=== PATIENT | female | born 1980 | race Caucasian/White ===

== ENCOUNTER 2022-07-22 15:33 | Emergency (ER) | payer BC, SELFPAY ==
[2022-07-22 15:56] VITALS: BP 132/76; PULSE 79; RESP 20; TEMP 36.1; O2SAT 100; BMI 28.0
--- NOTE | 2022-07-22 16:05 | ED.LOWEXIN ---
HPI - Extremity Injury (Lower) General Time Seen by Provider: 16:05 Date Seen: 07/22/22 Chief Complaint: Extremity Pain/Injury, Lower Stated Complaint: R leg injury Time Seen by Provider: 07/22/22 16:02 Source: patient and RN notes reviewed Limitations: no limitations History of Present Illness HPI Narrative: 42-year-old female is coming in with acute right knee pain. She was walking her young lab dog when he ran into her knee. She is having pain on the outside of the right knee, radiates up the leg and goes down. If she attempts to move her leg, the pain increases. She states the top of her foot feels a little numb and tingly. She has difficulty bearing weight. She states it is swollen on the outside of the knee. This happened just prior to arrival. MD complaint: knee injury Onset (ago): minute(s) Injury: Right: knee Type of Injury: blunt Severity: moderate Related Data Home Medications Medication Instructions Recorded Confirmed methylphenidate HCl 20 mg tablet 20 mg PO DAILY 07/22/22 07/22/22 methylphenidate HCl 54 mg 54 mg PO QAM 07/22/22 07/22/22 tablet,extended release 24 hr venlafaxine 150 mg 150 mg PO DAILY 07/22/22 07/22/22 capsule,extended release 24 hr venlafaxine 75 mg capsule,extended 75 mg PO DAILY 07/22/22 07/22/22 release 24 hr Allergies Allergy/AdvReac Type Severity Reaction Status Date / Time latex Allergy throat Verified 07/22/22 16:02 itchy prochlorperazine Allergy Hives Verified 07/22/22 16:02 [From Compazine] shellfish derived Allergy Verified 07/22/22 16:02 Review of Systems Narrative: As per HPI PFSH PFSH Social History Smoking Status: Never smoker Do you use any of these nicotine containing products: None How often do you have a drink containing alcohol: never AUDIT-C Alcohol total score: 0 Non-prescribed substance use: denies use Exam Const: Vital Signs, click to edit/add: Vital Signs - 24 hr 07/22/22 15:56 Temperature 97.0 F L Pulse Rate [Pulse Oximeter] 79 Respiratory Rate 20 Blood Pressure [Le ft Forearm] 132/76 Pulse Oximetry 100 Oxygen Delivery Me thod Room Air Documenting provider has reviewed patient's vital signs: yes Other: pleasant 42-year-old female with her right knee flexed, resting the back of the ankle on her left knee. Can see obvious swelling along the anterolateral proximal tibial/lower extremity. Joint line does not palpate tender nor swollen. She does seem to have some popliteal fossa discomfort but I feel no fluctuance, no significant swelling. She is tender over the insertion of the lateral collateral ligament on the tibial area but not really over the joint line itself. When I stress the lateral collateral ligament she does complain of pain. I cannot get a good Matt's due to her pain. Patella seems to be riding intact without any tenderness. No medial joint line tenderness. There is no open wound of the skin. She has good dorsalis pedis pulse posterior tibialis pulse on the right. Foot is warm. Does seem to have sensation. Course Course Hospital Course: there is obvious swelling along the lateral upper lower extremity. Patient has discomfort that is severe with any attempts at movement of the foot and this pain isolate up to the upper outer leg. I wonder about muscular injury where there is attachment on the outer lateral tibia. She also has pain with stressing of the lateral collateral ligament. I cannot get a good Matt's on her due to her pain. We are going to give her some IV Toradol, start with some plain films to see if there is any avulsion type fracture. Have reviewed with her that she is likely going to need to see Orthopedics and possibly advanced imaging such as an MRI. Reevaluation(s) Reevaluation #1: Reviewed with patient that her knee xray on preliminary review is showing abnormality in the proximal tibia, will be getting further imaging of the complete tibia/fibula. Time: 17:16 Reevaluation #2: Reviewed the CT report, will need orthopedic follow up for sure. Reviewed with her pain management, she declines oxycodone. Time: 20:38 Consultations Consultation #1: Spoke with Erlinda Carrero of the [facility] covering for Orthopedics. Reviewed the history with her, we are still awaiting x-rays. Likely to place a knee immobilizer, follow up with Ortho. She will have the office call the patient tomorrow morning to get a follow-up scheduled appointment. Did call Erlinda back after seeing the x-rays. Once the tibia and fibula x-ray were reviewed, did call her. Reviewed the case at 6:21 p.m.. She agrees that she thinks this is probably a tibial plateau fracture with extension into the tibia. We will obtain CT of her knee here, put her in a knee immobilizer after. Did review this with the patient right after talking to Erlinda. Time: 16:23 Vital Signs Vital signs: Initial Vital Signs Temperature 97.0 F L 07/22/22 15:56 Temperature Source Temporal Artery Scan 07/22/22 15:56 Pulse Rate 79 07/22/22 15:56 Respiratory Rate 20 07/22/22 15:56 Blood Pressure 132/76 07/22/22 15:56 Blood Pressure Mean 94 07/22/22 15:56 Blood Pressure Position Supine 07/22/22 15:56 Pulse Oximetry 100 07/22/22 15:56 Oxygen Delivery Method Room Air 07/22/22 15:56 Vital Signs Temperature 97.0 F L 07/22/22 15:56 Pulse Rate 79 07/22/22 15:56 Respiratory Rate 20 07/22/22 15:56 Blood Pressure 132/76 07/22/22 15:56 Pulse Oximetry 100 07/22/22 15:56 Oxygen Delivery Method Room Air 07/22/22 15:56 Temperature 97.0 F L 07/22/22 15:56 Pulse Rate 79 07/22/22 15:56 Respiratory Rate 20 07/22/22 15:56 Blood Pressure 132/76 07/22/22 15:56 Pulse Oximetry 100 07/22/22 15:56 Oxygen Delivery Method Room Air 07/22/22 15:56 MDM - Extremity Injury (Lower) Imaging Data X-ray right knee: Attestation: I have reviewed the pertinent imaging results. My impression: On the lateral view of the tibia, I see a fracture line. Will await Radiology over read but I will also order a full tibia and fibula of this extremity. Radiologist's impression: Patient: HARRIS PAK Facility:?[facility] Patient ID:?[id number] Site Patient ID:?[id number]. Site :?[id number] Study:?XRay Knee Right -07/22/2022 5:12:16 PM Ordering Physician:?Moe Maradiaga Final Report: INDICATION: Injury/pain. TECHNIQUE: Right knee 3 views. COMPARISON: None. FINDINGS: There is an acute nondisplaced longitudinally oriented fracture of the proximal tibial metadiaphysis. The fracture line extends to the articular surface of the medial tibial plateau. No dislocation. No knee joint effusion. The patella is normally aligned. Soft tissues are unremarkable. IMPRESSION: Acute nondisplaced intra-articular fracture of the proximal tibia. Dictated by Claudia Pedersen MD @ 07/22/2022 6:44:28 PM (Electronic Signature) X-ray right tibia and fibula: Attestation: I have reviewed the pertinent imaging results. My impression: Can see the proximal tibial fracture, await radiology over-read. Radiologist's impression: Patient: HARRIS PAK Facility:?[facility] Patient ID:?[id number] Site Patient ID:?[id number]. Site :?[id number] Study:?XRay Extremity Right TIB./FIB-07/22/2022 5:48:48 PM Ordering Physician:?Moe Maradiaga Final Report: INDICATION: Abnormal knee x-ray. TECHNIQUE: Right tibia and fibula, 3 views. COMPARISON: None. FINDINGS: There is an acute nondisplaced longitudinally oriented fracture of the proximal tibial metadiaphysis. Intra-articular extension to the knee joint is better seen on same day knee radiographs. The knee and ankle appear normally aligned. Small Achilles calcaneal spur. Mild soft tissue swelling along the anterior aspect of the proximal tibia. IMPRESSION: Acute nondisplaced fracture of the proximal tibia. Dictated by Claudia Pedersen MD @ 07/22/2022 6:47:37 PM (Electronic Signature) CT of right knee: Attestation: I have reviewed the pertinent imaging results. Radiologist's impression: Patient: HARRIS PAK Facility:?[facility] Patient ID:?[id number] Site Patient ID:?[id number]. Site :?1980 Study:?CT Knee Right w/o Contrast-07/22/2022 7:36:35 PM Ordering Physician:?Moe Maradiaga Final Report: INDICATION: Knee pain. TECHNIQUE: Noncontrast axial images with sagittal and coronal reconstructions. COMPARISON: Radiographs from today. FINDINGS: Large lipohemarthrosis. There is a comminuted intra-articular fracture of the proximal tibia with involvement of both the medial and lateral tibial plateaus. The lateral tibial plateau fracture is severely comminuted, with depression of the central portion of the articular surface. The degree of articular surface fracture fragment depression measures up to 1.5 cm. The involved articular component measures approximately 2.3 x 1.8 cm on axial image 165. There also vertically oriented fractures involving the lateral tibial plateau, including the anterior as well as the anterolateral aspect of the proximal tibia (lateral the fractures are seen both anteriorly and posteriorly). These components are essentially nondisplaced. The intra-articular involvement of the medial tibial plateau is essentially nondisplaced. There is also fracture involvement of the tibial spines, which are nondisplaced. The distal femur, patella, and proximal tibia are intact. IMPRESSION: 1. Large lipohemarthrosis. 2. Comminuted intra-articular fracture of the proximal tibia with involvement of both the medial and lateral tibial plateaus, as well as the tibial spines. The lateral tibial plateau fracture demonstrates significant depression of the articular surface, while the medial tibial plateau fracture is nondisplaced. See above. Please note that all CT scans at this facility use dose modulation, iterative reconstruction, and/or weight-based dosing when appropriate to reduce radiation dose to as low as reasonably achievable. Dictated by Yassine Frost MD @ 07/22/2022 8:10:55 PM (Electronic Signature) Discharge Plan Discharge Clinical Impression: Closed fracture of tibial plateau Qualifiers: Encounter type: initial encounter Laterality: right Qualified Code(s): S82.141A - Displaced bicondylar fracture of right tibia, initial encounter for closed fracture Patient Disposition: Home, Self-Care Condition: Unchanged Instructions: Leg Fracture (ED) Additional Instructions: Ice, elevate this knee as much as able to to help diminish pain and swelling. Use the knee immobilizer and crutches for nonweightbearing. You do need to sleep in the knee immobilizer. Tylenol 1000 mg 3 times a day baseline for pain. Can supplement with ibuprofen per bottle directions as needed for further pain management. Can use oxycodone 5 mg per prescription for severe pain. Oxycodone is a narcotic and can be constipating. May need to use MiraLax and or senna while on this to prevent narcotic associated constipation. You absolutely need to follow-up with the orthopedist. They are supposed to contact you in the morning. If you have not heard from them by lunch, please call the number to get scheduled for a follow-up, . Prescriptions: No Action venlafaxine 75 mg capsule,extended release 24hr 75 mg PO DAILY methylphenidate HCl 20 mg tablet 20 mg PO DAILY venlafaxine 150 mg capsule,extended release 24hr 150 mg PO DAILY methylphenidate HCl 54 mg tablet extended release 24hr 54 mg PO QAM Follow Up/Referrals: Emily Nunez MD [Staff Physician] - Stand Alone Forms: [employer] Info Instructions
--- NOTE | 2022-07-22 16:11 | CRLHL7_ITS ---
For Patients: As a result of the Cures Act, medical imaging exams and procedure reports are released immediately into your electronic medical record. You may view this report before your referring provider. If you have questions, please contact your health care provider. INDICATION: Injury/pain. TECHNIQUE: Right knee 3 views. COMPARISON: None. FINDINGS: There is an acute nondisplaced longitudinally oriented fracture of the proximal tibial metadiaphysis. The fracture line extends to the articular surface of the medial tibial plateau. No dislocation. No knee joint effusion. The patella is normally aligned. Soft tissues are unremarkable. IMPRESSION: Acute nondisplaced intra-articular fracture of the proximal tibia. Dictated by Claudia Pedersen MD @ 07/22/2022 6:44:28 PM (Electronically Signed)
[2022-07-22] MEDS: KETOROLAC 15 MG/ML inj IVP (16:32)
--- NOTE | 2022-07-22 17:11 | CRLHL7_ITS ---
For Patients: As a result of the Century Cures Act, medical imaging exams and procedure reports are released immediately into your electronic medical record. You may view this report before your referring provider. If you have questions, please contact your health care provider. INDICATION: Abnormal knee x-ray. TECHNIQUE: Right tibia and fibula, 3 views. COMPARISON: None. FINDINGS: There is an acute nondisplaced longitudinally oriented fracture of the proximal tibial metadiaphysis. Intra-articular extension to the knee joint is better seen on same day knee radiographs. The knee and ankle appear normally aligned. Small Achilles calcaneal spur. Mild soft tissue swelling along the anterior aspect of the proximal tibia. IMPRESSION: Acute nondisplaced fracture of the proximal tibia. Dictated by Claudia Pedersen MD @ 07/22/2022 6:47:37 PM (Electronically Signed)
--- NOTE | 2022-07-22 18:21 | CRLHL7_ITS ---
For Patients: As a result of the Century Cures Act, medical imaging exams and procedure reports are released immediately into your electronic medical record. You may view this report before your referring provider. If you have questions, please contact your health care provider. INDICATION: Knee pain. TECHNIQUE: Noncontrast axial images with sagittal and coronal reconstructions. COMPARISON: Radiographs from today. FINDINGS: Large lipohemarthrosis. There is a comminuted intra-articular fracture of the proximal tibia with involvement of both the medial and lateral tibial plateaus. The lateral tibial plateau fracture is severely comminuted, with depression of the central portion of the articular surface. The degree of articular surface fracture fragment depression measures up to 1.5 cm. The involved articular component measures approximately 2.3 x 1.8 cm on axial image 165. There also vertically oriented fractures involving the lateral tibial plateau, including the anterior as well as the anterolateral aspect of the proximal tibia (lateral the fractures are seen both anteriorly and posteriorly). These components are essentially nondisplaced. The intra-articular involvement of the medial tibial plateau is essentially nondisplaced. There is also fracture involvement of the tibial spines, which are nondisplaced. The distal femur, patella, and proximal tibia are intact. IMPRESSION: 1. Large lipohemarthrosis. 2. Comminuted intra-articular fracture of the proximal tibia with involvement of both the medial and lateral tibial plateaus, as well as the tibial spines. The lateral tibial plateau fracture demonstrates significant depression of the articular surface, while the medial tibial plateau fracture is nondisplaced. See above. Please note that all CT scans at this facility use dose modulation, iterative reconstruction, and/or weight-based dosing when appropriate to reduce radiation dose to as low as reasonably achievable. Dictated by Yassine Frost MD @ 07/22/2022 8:10:55 PM (Electronically Signed)
== END 2022-07-22 20:48 | disposition home or self-care (01) ==
PROVIDERS: Emergency Provider Family Medicine; PCP Family Medicine
DX: S82.141A Displaced bicondylar fracture of right tibia, initial encounter for closed fracture (principal); W54.1XXA Struck by dog, initial encounter
CPT/HCPCS: 73562; 73590; 73700; 96374; 99284; J1885

== ENCOUNTER 2023-01-04 12:54 | Emergency (ER) | payer BC, SELFPAY ==
[2023-01-04] VITALS (30 sets, daily range): BP systolic 133–155; BP diastolic 85–104; PULSE 69–92; RESP 18; TEMP 36.8; O2SAT 95–99; BMI 26.4
--- NOTE | 2023-01-04 13:27 | CRLHL7_ITS ---
For Patients: As a result of the Century Cures Act, medical imaging exams and procedure reports are released immediately into your electronic medical record. You may view this report before your referring provider. If you have questions, please contact your health care provider. CLINICAL HISTORY: Stroke. TECHNIQUE: CTA neck with contrast bolus tracking. 3D angiographic rendering using maximum intensity projection (MIP) and images permanently archived. COMPARISON: None available. FINDINGS: The great vessels are patent. The common carotid arteries are patent. The proximal ICAs are patent without signficant stenoses by NASCET criteria. The more distal cervical ICAs are patent. The origins of the vertebral arteries are patent. The cervical segments of the vertebral arteries are patent. Partial visualization of at least 3 lobular opacities within the upper lobe of the right lung measuring up to 2.7 cm. IMPRESSION: 1. Patent cervical arterial vasculature without hemodynamically significant luminal stenosis. 2. Partial visualization of at least 3 lobular opacities within the upper lobe of the right lung measuring up to 2.7 cm. Further assessment with dedicated chest CT examination is recommended. Please note that all CT scans at this facility use dose modulation, iterative reconstruction, and/or weight-based dosing when appropriate to reduce radiation dose to as low as reasonably achievable. Dictated by Andrew Navarro MD @ 01/04/2023 9:34:27 PM (Electronically Signed)
--- NOTE | 2023-01-04 13:27 | CRLHL7_ITS ---
For Patients: As a result of the Century Cures Act, medical imaging exams and procedure reports are released immediately into your electronic medical record. You may view this report before your referring provider. If you have questions, please contact your health care provider. INDICATION: Stroke. TECHNIQUE: Noncontrast CT images acquired through the brain. COMPARISON: None. FINDINGS: The ventricles and sulci are within normal limits for patient age. Cavum septum pellucidum, an anatomic variant. No mass effect or midline shift. The robles-white differentiation is maintained. No acute intracranial hemorrhage or pathologic extra-axial fluid collection. The globes are symmetric. The calvarium is intact. Mild right maxillary sinus mucosal thickening. The mastoid air cells are clear. IMPRESSION: No acute intracranial hemorrhage or mass effect. Please note that all CT scans at this facility use dose modulation, iterative reconstruction, and/or weight-based dosing when appropriate to reduce radiation dose to as low as reasonably achievable. Dictated by Onesimo Lewis MD @ 01/04/2023 1:49:30 PM (Electronically Signed)
--- NOTE | 2023-01-04 13:27 | CRLHL7_ITS ---
For Patients: As a result of the Century Cures Act, medical imaging exams and procedure reports are released immediately into your electronic medical record. You may view this report before your referring provider. If you have questions, please contact your health care provider. CLINICAL HISTORY: Stroke. TECHNIQUE: CTA head with contrast bolus tracking. 3D angiographic rendering using maximum intensity projection (MIP) and images permanently archived. COMPARISON: None available. FINDINGS: The petrous, cavernous, and supraclinoid segments of the internal carotid arteries are patent. The anterior and middle cerebral arteries are patent. The anterior communicating artery is visualized and is within normal limits. The intracranial vertebral arteries, basilar trunk, and posterior cerebral arteries are patent. No intracranial proximal large vessel occlusion or flow-limiting luminal stenosis. No evidence of cerebral aneurysm. No findings to suggest an arterial-venous shunting lesion. The major dural venous sinuses and deep venous system are patent. IMPRESSION: No intracranial proximal large vessel occlusion, flow-limiting luminal stenosis, or cerebral aneurysm. Please note that all CT scans at this facility use dose modulation, iterative reconstruction, and/or weight-based dosing when appropriate to reduce radiation dose to as low as reasonably achievable. Dictated by Andrew Navarro MD @ 01/04/2023 9:36:52 PM (Electronically Signed)
--- NOTE | 2023-01-04 13:28 | ED.GENADULT ---
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 She presents to the ER today by private car from home accompanied by her . She did have symptoms yesterday including an ocular migraine which would include flashing lights and visual disturbances affecting her eye. These are not unusual for her. Though symptoms were not necessarily warranting coming to the doctor. When she woke up from sleep at around 8:30 a.m. this morning she had additional neurologic symptoms. In particular she is noting trouble with her vision. Vision of her left eyeball is slightly blurry but is normal in her right eye. She also notes that when both eyes are open she seems to have double vision and I think she is describing horizontal diplopia. She also feels a funny feeling on the left side of her head, it is not really a headache but more of a ?numb? feeling there. She also feels slightly unsteady and has trouble with her balance when she is walking. She has not fallen. No numbness or tingling or weakness in any particular arm or leg. No speech disturbance. Her says she seemed a little bit more confused at times this morning. She also notes that she has had some pain intermittently for the past year or so affecting her left anterolateral neck in the area of her carotid. She attributes this to when she feels like her blood pressure is higher. She is not really having any new or worsening pain in her neck today. No other recent symptoms. No fever chills. No recent head trauma. She believes that her malignancy has been stable over recent months Related Data Home Medications Medication Instructions Recorded Confirmed methylphenidate HCl 20 mg tablet 20 mg PO DAILY 07/22/22 07/24/22 methylphenidate HCl 54 mg 54 mg PO QAM 07/22/22 01/04/23 tablet,extended release 24 hr venlafaxine 150 mg 150 mg PO DAILY 07/22/22 01/04/23 capsule,extended release 24 hr venlafaxine 75 mg capsule,extended 75 mg PO DAILY 07/22/22 01/04/23 release 24 hr Previous Rx's Medication Instructions Recorded oxycodone 5 mg capsule 5 mg PO Q6H PRN pain #10 caps 07/24/22 Allergies Allergy/AdvReac Type Severity Reaction Status Date / Time latex Allergy throat Verified 07/24/22 08:53 itchy prochlorperazine Allergy Hives Verified 07/24/22 08:53 [From Compazine] shellfish derived Allergy Verified 07/24/22 08:53 Review of Systems Narrative: Negative PFSH PFSH Social History Smoking Status: Former smoker Do you use any of these nicotine containing products: None How often do you have a drink containing alcohol: never AUDIT-C Alcohol total score: 0 Non-prescribed substance use: denies use Exam Narrative: Exam Narrative: Constitutional: Appears well-developed and well-nourished. Alert. Conversant and very alert.. Non toxic. Speech is fluent. Cognition intact. HENT: Head: Atraumatic. Nose: Nose normal. Mouth/Throat: Oral mucosa is clear and moist. no trismus. Pharynx normal. Tonsils symmetric. No tonsillar enlargement, erythema, or exudate. Eyes: Conjunctivae normal. EOM normal. Pupils equal, round, and reactive to light. No scleral icterus. Neck: Normal range of motion. Neck supple. No tracheal deviation present. No carotid bruits. Cardiovascular: Normal rate, regular rhythm. No gallop. No friction rub. No murmur heard. Symmetric radial artery pulses Pulmonary/Chest: Effort normal. No stridor. No respiratory distress. No wheezes. No rales. No rhonchi . No tenderness. Abdominal: Soft. Bowel sounds normal. No distension. No mass. No tenderness. No rebound. No guarding. Musculoskeletal: RUE: Normal range of motion. No tenderness. No deformity LUE: Normal range of motion. No tenderness. No deformity RLE: Normal range of motion. No edema. No tenderness. No deformity LLE: Normal range of motion. No edema. No tenderness. No deformity Lymph: No cervical adenopathy. Mental status normal. Attention normal. Alert and oriented x3. GCS 15. Memory normal. Speech fluent. Cognition normal. Cranial Nerves intact II-XII except I did not formally test gag or visual acuity. EOMI. No nystagmus. Smooth pursuit. No exophthalmos or enophthalmos. Palate elevates symmetrically and tongue protrudes in the midline. Shoulder shrug symmetric. Visual patel are full to confrontation and finger counting in all 4 quadrants bilaterally. Strength: 5/5 trapezius on the right and left 5/5 deltoid on the right and left 5/5 biceps on the right and left 5/5 triceps on the right and left 5/5 senior technical support engineer on the right and left 5/5 thumb opposition on the right and left 5/5 finger abduction on the right and left 5/5 hip flexors (L3) on the right and left 5/5 quadriceps (L4) on the right and left 5/5 tibialis anterior on the right and left 5/5 EHL (L5) on the right and left 5/5 gastrocnemius (S1) on the right and left 5/5 hamstring on the right and left Sensation intact to light touch in both upper extremities (C4-T1) Sensation intact to light touch in Both lower extremities (L4-S1). Finger to nose and coordination normal. Gait normal. Romberg normal. At 3:00 p.m. NIH stroke scale = 0. However the patient does have subjective dizziness and subjective diplopia not characterized by this NIH stroke scale. Skin: Skin is warm and dry. No rash noted. No pallor. Normal capillary refill. Psychiatric: Normal mood. Normal affect. Const: Vital Signs, click to edit/add: Vital Signs - 24 hr 01/04/23 13:04 01/04/23 13:40 01/04/23 13:42 Temperature 98.2 F Pulse Rate 87 Pulse Rate [Pulse Oximeter] 89 Respiratory Rate 18 Blood Pressure Blood Pressure [Ri ght Upper Arm] 136/85 Pulse Oximetry 99 98 99 Oxygen Delivery Me thod Room Air 01/04/23 13:45 01/04/23 13:46 01/04/23 14:00 Temperature Pulse Rate 84 83 80 Pulse Rate [Pulse Oximeter] Respiratory Rate Blood Pressure 142/90 H Blood Pressure [Ri ght Upper Arm] Pulse Oximetry 99 97 96 Oxygen Delivery Me thod 01/04/23 14:01 01/04/23 14:02 01/04/23 14:15 Temperature Pulse Rate 77 74 76 Pulse Rate [Pulse Oximeter] Respiratory Rate Blood Pressure 149/95 H Blood Pressure [Ri ght Upper Arm] Pulse Oximetry 97 96 96 Oxygen Delivery Me thod 01/04/23 14:16 01/04/23 14:30 01/04/23 14:32 Temperature Pulse Rate 75 92 71 Pulse Rate [Pulse Oximeter] Respiratory Rate Blood Pressure 144/89 H 140/88 H Blood Pressure [Ri ght Upper Arm] Pulse Oximetry 96 99 97 Oxygen Delivery Me thod 01/04/23 14:45 01/04/23 14:47 01/04/23 15:00 Temperature Pulse Rate 71 69 84 Pulse Rate [Pulse Oximeter] Respiratory Rate Blood Pressure 141/88 H Blood Pressure [Ri ght Upper Arm] Pulse Oximetry 95 97 99 Oxygen Delivery Me thod 01/04/23 15:01 01/04/23 15:02 01/04/23 15:17 Temperature Pulse Rate 79 79 Pulse Rate [Pulse Oximeter] Respiratory Rate Blood Pressure 144/92 H 148/99 H Blood Pressure [Ri ght Upper Arm] Pulse Oximetry 98 97 Oxygen Delivery Me thod 01/04/23 15:32 01/04/23 15:47 01/04/23 17:42 Temperature Pulse Rate 82 Pulse Rate [Pulse Oximeter] Respiratory Rate Blood Pressure 142/94 H 141/93 H Blood Pressure [Ri ght Upper Arm] Pulse Oximetry 95 Oxygen Delivery Me thod 01/04/23 17:45 01/04/23 17:46 01/04/23 18:02 Temperature Pulse Rate 81 80 Pulse Rate [Pulse Oximeter] Respiratory Rate Blood Pressure 155/94 H 150/88 H Blood Pressure [Ri ght Upper Arm] Pulse Oximetry 96 97 Oxygen Delivery Me thod 01/04/23 18:17 01/04/23 18:32 01/04/23 18:47 Temperature Pulse Rate Pulse Rate [Pulse Oximeter] Respiratory Rate Blood Pressure 143/94 H 138/100 H 145/88 H Blood Pressure [Ri ght Upper Arm] Pulse Oximetry Oxygen Delivery Me thod 01/04/23 19:02 01/04/23 19:17 01/04/23 19:32 Temperature Pulse Rate Pulse Rate [Pulse Oximeter] Respiratory Rate Blood Pressure 155/104 H 145/92 H 133/87 Blood Pressure [Ri ght Upper Arm] Pulse Oximetry Oxygen Delivery Me thod Course Vital Signs Vital signs: Initial Vital Signs Temperature 98.2 F 01/04/23 13:04 Temperature Source Temporal Artery Scan 01/04/23 13:04 Pulse Rate 89 01/04/23 13:04 Respiratory Rate 18 01/04/23 13:04 Blood Pressure 136/85 01/04/23 13:04 Blood Pressure Mean 102 01/04/23 13:04 Blood Pressure Position Supine 01/04/23 13:04 Pulse Oximetry 99 01/04/23 13:04 Oxygen Delivery Method Room Air 01/04/23 13:04 Vital Signs Temperature 98.2 F 01/04/23 13:04 Pulse Rate 89 01/04/23 13:04 Respiratory Rate 18 01/04/23 13:04 Blood Pressure 136/85 01/04/23 13:04 Pulse Oximetry 99 01/04/23 13:04 Oxygen Delivery Method Room Air 01/04/23 13:04 Temperature 98.2 F 01/04/23 13:04 Pulse Rate 80 01/04/23 17:46 Respiratory Rate 18 01/04/23 13:04 Blood Pressure 133/87 01/04/23 19:32 Pulse Oximetry 97 01/04/23 17:46 Oxygen Delivery Method Room Air 01/04/23 13:04 Medical Decision Making MDM Narrative Medical decision making narrative: 42-year-old female with a past medical history of migraines and ocular migraines, also chondrosarcoma affecting her lungs. Presenting to the ER today with symptoms including visual disturbance and headache yesterday consistent with ocular migraine. She has had neurologic symptoms including horizontal diplopia, imbalance, dizziness, and intermittent episodes of confusion that have been present when she woke up at 8:30 a.m. this morning. A stroke team activation was called from triage. In discussion with the stroke neurologist from [facility] she would suspect almost certainly this is a migraine related phenomena. She agrees that the patient is outside the window for IV tPA. She would agree with us getting CT scan of the patient's head just to be sure there was nothing else acute and would agree with angiogram since the patient has been having left anterolateral neck pain. However she would not anticipate the need for any transferred have it, admission based on the symptoms. At the time of presentation the patient is already outside the window for IV tPA. However with neurologic symptoms less than 24 hours we did proceed with stroke team activation. Noncontrast head CT is normal. No evidence for intracranial bleed or any obvious sign for intracranial metastasis causing her symptoms. Also no edema or other clear mass. CT angiogram is normal. No LV 0. She has been having some left anterolateral neck pain for about a year or so but no evidence for dissection, atherosclerotic disease, or other abnormality on CT angio today. She does not have any neck stiffness, fever, or other meningismal signs to suggest meningitis. Incidentally there is a tumor noted on the CT angiogram affecting the patient's right upper lobe. She has previously known pulmonary tumors from her chondrosarcoma. Presume this is related to that. She will follow-up with [facility] for ongoing surveillance. I recheck the patient at about 315. She was feeling slightly better but still had ongoing symptoms of blurry vision, fuzziness in her left eye and slight dizziness. Repeat neuro exam reveals no definite focal abnormalities. NIH stroke scale is 0, but she still has symptoms that do not fit the NIH stroke scale.. Will administer anti my great medication in case this is migraine phenomena. Await lab results. Lab so far showed normal white blood cell count, hemoglobin, and platelet count. Patient is not anticoagulated or coagulopathic. INR is 0.86. PTT 25. Sodium, other electrolytes are normal save for minimally low potassium of 3.5. Kidney function and blood sugar normal. Calcium normal. Patient CT and CT angiogram read as normal. I recheck the patient she does still had persistent symptoms after treatment with migraine medications. Recheck-MRI back in does show multifocal small infarcts affecting both frontal lobes in the right thalamus. With multifocal infarcts suspect probably embolic phenomena. Updated patient. Discussed with stroke neurology, from [facility]. They would recommend that the patient needs to be admitted for further workup, possible BERNICE to look for cardiac emboli. Hold off on anticoagulation for now since source unclear. EKG shows sinus rhythm. They would accept the patient and have it but since she gets previous care for oncology at [place], transferred to [facility] me be ultimately the best thing for her. Discussed with the patient and her . They would prefer transfer to [place] rather than [facility], if possible Discussed with [facility], Neurology, Dr. Mendoza. He will accept the patient in transfer to [facility] at [facility]. She will be admitted to the Medical/telemetry floor for further workup. She likely will have to wait until Friday for bernice again have other workup between now and then. He would recommend administering aspirin 325 mg p.o. which was done. Patient prefers to transfer by private car. Lab Data Labs: Lab Results 01/04/23 Range/Units 13:20 WBC 8.02 (4.50-11.00) K/uL RBC 4.64 (4.00-5.20) m/uL Hgb 13.9 (12.0-16.0) gm/dL Hct 41.9 (33.0-51.0) % MCV 90 (80-100) fL MCH 30 (26-34) pg MCHC 33 (32-36) gm/dL RDW Coeff of Layne 12.3 (11.5-15.5) % Plt Count 383 (140-440) K/uL Neut % (Auto) 70.9 (42.0-72.0) % Lymph % (Auto) 19.2 L (20-44) % [place]ali % (Auto) 8.0 (0.0-11.0) % Eos % (Auto) 1.2 (0.0-7.0) % Baso % (Auto) 0.6 (0.0-3.0) % Neut # (Auto) 5.68 (1.7-7.0) K/uL Lymph # (Auto) 1.50 (0.90-2.90) K/uL Denali # (Auto) 0.60 (0.00-0.90) K/UL Eos # (Auto) 0.10 (0.00-0.50) K/uL Baso # (Auto) 0.05 (0.00-0.30) K/uL Abs Immat Gran (auto) 0.01 (0.00-0.30) K/uL Imm/Tot Granulo (auto) 0.1 % INR 0.86 L (0.91-1.10) APTT 25 (23-33) Seconds Sodium 141 (135-149) mmol/L Potassium 3.5 L (3.6-5.1) mmol/L Chloride 103 (96-114) mmol/L Carbon Dioxide 28 (20-32) mmol/L Anion Gap 10 (7-15) mEq/L BUN 11 (5-24) mg/dL Creatinine 0.7 (0.5-1.5) mg/dL Estimated Creat Clear 88.56 Estimated GFR 109 ml/min Glucose 93 (60-115) mg/dL Calcium 9.7 (8.4-10.6) mg/dL Imaging Data CT scan - head: Attestation: I have reviewed the pertinent imaging results. Radiologist's impression: IMPRESSION: No acute intracranial hemorrhage or mass effect. CT angio head/neck: Attestation: I have reviewed the pertinent imaging results. Radiologist's impression: No proximal large vessel occlusion, cervical arterial stenosis, or arterial dissection. Incompletely visualized lobular opacity within the upper lobe of the right lung measuring at least 2.7 cm is indeterminate. Dedicated chest CT is recommended for further evaluation. MRI Brain: Attestation: I have reviewed the pertinent imaging results. Radiologist's impression: Multiple small foci of diffusion restriction scattered within the right greater than left cerebral hemispheres, with involvement of the eye frontal lobes, posterior parietal lobes, right frontal centrum semiovale, and posterior right occipital lobe, compatible with acute infarctions. Additional small acute infarctions in the medial right thalamus. The ventricles and sulci are within normal limits for patient age. Cavum septum pellucidum et vergae, an anatomic variant. No mass effect or midline shift. Few punctate FLAIR hyperintensities in the supratentorial white matter, nonspecific. Chronic lacunar infarctions in the cerebellar hemispheres. Small susceptibility within the deep left cerebellar hemisphere, favored to represent a chronic hemorrhage. No recent intracranial hemorrhage or pathologic extra-axial fluid collection. The major arterial flow voids of the skullbase are preserved. The globes are symmetric. Mild paranasal sinus mucosal thickening. The mastoid air cells are clear.IMPRESSION: 1. Multiple small acute infarctions within the cerebral hemispheres, including notable involvement of the posterior right occipital lobe. Additional small acute infarctions within the right thalamus. 2. Chronic lacunar infarctions in the cerebellum. 3. No intracranial mass effect or significant parenchymal edema on this noncontrast exam. ECG Data Attestation: I personally reviewed and interpreted this ECG as follows: Interpretation: Normal sinus rhythm rate 77 UT 140 QRS axis normal axis. Voltage criteria for LVH. No pathologic Q-waves. ST segment/T wave: No ST segment elevation or depression. QTc: 466 Discharge Plan Discharge Clinical Impression: Ac isch multi vasc territories stroke Patient Disposition: Xfer Other Prescriptions: No Action oxycodone 5 mg capsule 5 mg PO Q6H PRN (Reason: pain) Qty: 10 0RF venlafaxine 75 mg capsule,extended release 24hr 75 mg PO DAILY methylphenidate HCl 20 mg tablet 20 mg PO DAILY venlafaxine 150 mg capsule,extended release 24hr 150 mg PO DAILY methylphenidate HCl 54 mg tablet extended release 24hr 54 mg PO QAM Stand Alone Forms: My[facility] Info Instructions
[2023-01-04 13:37] LABS: Basophils Absolute Auto 0.05 K/uL (0.00-0.30); Basophils Percent Auto 0.6 % (0.0-3.0); Eosinophils Percent Auto 1.2 % (0.0-7.0); Hematocrit 41.9 % (33.0-51.0); Hemoglobin* 13.9 gm/dL (12.0-16.0); Immature Granulocytes Abs Auto 0.01 K/uL (0.00-0.30); Immature Granulocytes Pct Auto 0.1 %; Lymphocytes Percent Auto 19.2 % (20-44); Mean Corpuscular HGB Conc 33 gm/dL (32-36); Mean Corpuscular Hemoglobin 30 pg (26-34); Mean Corpuscular Volume 90 fL (80-100); Neutrophils Absolute Auto 5.68 K/uL (1.7-7.0); Neutrophils Percent Auto 70.9 % (42.0-72.0); Platelet Count* 383 K/uL (140-440); RDW Coefficient of Variation % 12.3 % (11.5-15.5); Red Blood Count 4.64 m/uL (4.00-5.20); White Blood Count* 8.02 K/uL (4.50-11.00)
[2023-01-04 13:43] LABS: Slide Review Reflex No
[2023-01-04 14:06] LABS: INR 0.86 (0.91-1.10); Prothrombin Time 12.3 Seconds
[2023-01-04 14:07] LABS: Chloride* 103 mmol/L (96-114); Partial Thromboplastin Time* 25 Seconds (23-33)
[2023-01-04 14:08] LABS: Potassium* 3.5 mmol/L (3.6-5.1); Sodium* 141 mmol/L (135-149)
[2023-01-04 14:10] LABS: Creatinine* 0.7 mg/dL (0.5-1.5); Est. Creatinine Clearance* 88.56; Estimated Glomerular Filt Rate 109 ml/min
[2023-01-04 14:11] LABS: Anion Gap 10 mEq/L (7-15); Blood Urea Nitrogen* 11 mg/dL (5-24); Calcium* 9.7 mg/dL (8.4-10.6); Carbon Dioxide* 28 mmol/L (20-32); Glucose* 93 mg/dL (60-115)
[2023-01-04] MEDS: KETOROLAC 15 MG/ML inj IVP (15:44)
[2023-01-04] MEDS: droperidoL 2.5 MG/ML inj 0.625 MG IV (15:44)
--- NOTE | 2023-01-04 16:02 | CRLHL7_ITS ---
For Patients: As a result of the Century Cures Act, medical imaging exams and procedure reports are released immediately into your electronic medical record. You may view this report before your referring provider. If you have questions, please contact your health care provider. INDICATION: Blurred vision. Diplopia. History of sarcoma with metastatic disease. TECHNIQUE: Multiplanar multisequence MR imaging acquired through the brain without intravenous contrast. COMPARISON: CT brain 01/04/2023. FINDINGS: Multiple small foci of diffusion restriction scattered within the right greater than left cerebral hemispheres, with involvement of the eye frontal lobes, posterior parietal lobes, right frontal centrum semiovale, and posterior right occipital lobe, compatible with acute infarctions. Additional small acute infarctions in the medial right thalamus. The ventricles and sulci are within normal limits for patient age. Cavum septum pellucidum et vergae, an anatomic variant. No mass effect or midline shift. Few punctate FLAIR hyperintensities in the supratentorial white matter, nonspecific. Chronic lacunar infarctions in the cerebellar hemispheres. Small susceptibility within the deep left cerebellar hemisphere, favored to represent a chronic hemorrhage. No recent intracranial hemorrhage or pathologic extra-axial fluid collection. The major arterial flow voids of the skullbase are preserved. The globes are symmetric. Mild paranasal sinus mucosal thickening. The mastoid air cells are clear. IMPRESSION: 1. Multiple small acute infarctions within the cerebral hemispheres, including notable involvement of the posterior right occipital lobe. Additional small acute infarctions within the right thalamus. 2. Chronic lacunar infarctions in the cerebellum. 3. No intracranial mass effect or significant parenchymal edema on this noncontrast exam. Dictated by Onesimo Lewis MD @ 01/04/2023 5:25:16 PM (Electronically Signed)
[2023-01-04] MEDS: LORazepam 2 MG/ML inj 1 MG IVP (16:17)
--- NOTE | 2023-01-04 19:25 | ED.NURSE ---
called [place], waiting on MD to call back.
[2023-01-04] MEDS: ASPIRIN EC 325 MG TABLET PO (19:40)
== END 2023-01-04 21:40 | disposition short-term general hospital (02) ==
LOC: ED 21:35
PROVIDERS: Emergency Provider Emergency Medicine; PCP Family Medicine
DX: I63.89 Other cerebral infarction (principal)
CPT/HCPCS: 36415; 70450; 70496; 70498; 70551; 80048; 82962; 85025; 85610; 85730; 93005; 94761; 96374; 96375; 99284; 99285; A9270; J1790; J1885; J2060; Q9967

== ENCOUNTER 2023-01-14 16:30 | Outpatient (RCR) | payer BC, SELFPAY | END 2023-03-31 12:35 | disposition home or self-care (01) | PROVIDERS: PCP Family Medicine; Visit Provider Orthopaedic Surgery Orthopaedic Trauma | DX: Z47.89 Encounter for other orthopedic aftercare (principal); S82.141D Displaced bicondylar fracture of right tibia, subsequent encounter for closed fracture with routine healing; Z51.89 Encounter for other specified aftercare | CPT/HCPCS: 97110; 97112; 97116; 97140; 97162; 97164; 97535 ==